=== PATIENT | male | born 1950 ===

== ENCOUNTER 2017-08-22 05:52 | Emergency (ER) | payer MEDICAID ==
[2017-08-22 06:18] VITALS: PULSE 74
[2017-08-22 07:07] LABS: APPEARANCE,URINE Cloudy; BILIRUBIN,URINE NEGATIVE (NEGATIVE); COLOR,URINE Yellow; GLUCOSE, URINE (UA) NEGATIVE (NEGATIVE); KETONES,URINE NEGATIVE (NEGATIVE); LEUKOCYTE ESTERASE ,URINE 1+ (NEGATIVE); NITRATE,URINE POSITIVE (NEGATIVE); OCCULT BLOOD,URINE 3+ (NEG-TRACE); PH,URINE 6.5
[2017-08-22 07:14] LABS: RBC,URINE UNABLE (0-3AV/HPF); WBC,URINE PACKED PUS CELLS (0-5AV/HPF)
[2017-08-22 08:12] VITALS: BP 118/72; RESP 18; TEMP 97.6; O2SAT 99
== END 2017-08-22 08:00 | disposition home or self-care (01) | DRG 700 ==
LOC: ED 05:52
DX: T83.021A Displacement of indwelling urethral catheter, initial encounter (principal); K59.00 Constipation, unspecified; Z87.442 Personal history of urinary calculi; Z85.46 Personal history of malignant neoplasm of prostate
CPT/HCPCS: 81001; 87088; 99283